=== PATIENT | female | born 1940 | race Caucasian/White ===

== ENCOUNTER 2023-03-15 20:18 | Emergency (ER) | payer MEDICARE, MEDICAID ==
[~2023-03-15] VITALS: Ht 172.7 cm; Wt 66.4 kg
[2023-03-15 20:36] VITALS: RESP 19; TEMP 97.7
[2023-03-15] MEDS ORDERED: LIDOcaine 1% W/epiNEPHrine 1:100,000 20ml vial SQ ONE (21:10)
[2023-03-15] MEDS ORDERED: LIDOCAINE 1%/EPI 1:100,000 inj. 10 ML multi-dose vial SQ ONE (21:15)
[2023-03-15 22:31] VITALS: BP 102/47; PULSE 81; O2SAT 96
== END 2023-03-15 22:33 | disposition home or self-care (01) ==
LOC: ER 20:19
DX: S01.81XA Laceration without foreign body of other part of head, initial encounter (principal); W18.39XA Other fall on same level, initial encounter; Y93.89 Activity, other specified; Y92.89 Other specified places as the place of occurrence of the external cause; Y99.8 Other external cause status
CPT/HCPCS: 12001; 12011; 70450; 72125; 99284; A6449

== ENCOUNTER 2023-07-18 08:17 | Inpatient (IN) | payer MEDICARE, MEDICAID ==
[2023-07-12 11:11] LABS: BILIRUBIN,URINE NEGATIVE (Neg); CLARITY,URINE CLOUDY (Clear); COLOR,URINE YELLOW (Yellow); GLUCOSE, URINE NEGATIVE (Neg); KETONES,URINE NEGATIVE (Neg); LEUKOCYTE ESTERASE ,URINE LARGE (Neg); NITRITES, URINE POSITIVE (Neg); OCCULT BLOOD,URINE SMALL (Neg); PH,URINE 6.5 (4.8-8.0); PROTEIN,URINE NEGATIVE (Neg); UROBILINOGEN,URINE 0.2 E.U/dL (0.2-1.0)
[2023-07-12 11:12] LABS: PRE OP INR 1.4 INR; PRE OP PROTIME 14.5 SECONDS (9.0-12.0)
[2023-07-12 11:14] LABS: ALBUMIN 3.4 G/DL (3.4-5.0); ALBUMIN/GLOBULIN RATIO 0.9 (1.1-1.5); ALKALINE PHOSPHATASE 108 IU/L (46-116); BASOPHILS % (AUTO) 0.6 % (0-1); BLOOD UREA NITROGEN 20 MG/DL (7-18); BUN/CREATININE RATIO 22.7 (10.0-20.0); CALCIUM 9.1 MG/DL (8.5-10.1); CHLORIDE 107 MMOL/L (99-107); CREATININE 0.88 MG/DL (0.40-0.90); EOSINOPHILS # (AUTO) 0.1 X10'3 (0-0.9); EOSINOPHILS % (AUTO) 1.9 % (0-6); LYMPHOCYTES # (AUTO) 1.1 X10'3 (1.1-4.8); LYMPHOCYTES % (AUTO) 18.3 % (21-51); MEAN CORPUSCULAR HEMOGLOBIN 30.6 PG (27.0-31.0); MEAN CORPUSCULAR VOLUME 92.8 FL (78-98); MEAN PLATELET VOLUME 8.8 FL (7.4-10.4); MONOCYTES # (AUTO) 0.6 X10'3 (0-0.9); MONOCYTES % (AUTO) 9.6 % (2-12); NEUTROPHILS # (AUTO) 4.2 X10'3 (1.8-7.7); NEUTROPHILS % (AUTO) 69.6 % (42-75); PRE OP ALT 22 U/L (30-65); PRE OP ANION GAP 7 (8-16); PRE OP AST 21 U/L (10-37); PRE OP BILIRUB, TOTAL 0.5 MG/DL (0.0-1.0); PRE OP GLUCOSE 87 MG/DL (70-104); PRE OP HEMATOCRIT 42.4 % (35.0-45.0); PRE OP PLATELET COUNT 174 X10'3 (140-440); PRE OP POTASSIUM 4.1 MMOL/L (3.4-5.1); PRE OP SODIUM 143 MMOL/L (135-145); PRE OP WHITE BLOOD COUNT 6.1 10'3 (4.8-10.8); RED BLOOD COUNT 4.57 X10'6 (4.20-5.60); RED CELL DISTRIBUTION WIDTH 13.8 % (11.5-14.5); TOTAL PROTEIN 7.2 G/DL (6.4-8.2); eGFR 61 ML/MIN
[2023-07-12 11:19] LABS: UA COLLECTION TYPE VOIDED
[2023-07-12 11:21] LABS: BACTERIA,URINE 3+ /HPF (Neg); MUCUS STRANDS NONE SEEN /LPF (Neg); RBC,URINE 0-2 /HPF (0-2); SQUAMOUS EPITHELIAL CELL,UR NONE SEEN /LPF (FEW); WBC,URINE 50-100 /HPF (0-4)
[2023-07-12 11:27] LABS: HEMOGLOBIN A1C 6.2 % (4.5-6.2)
[2023-07-18] VITALS (22 sets, daily range): BP systolic 105–143; BP diastolic 42–90; PULSE 59–85; RESP 7–20; TEMP 97.2–98.2; O2SAT 91–100
[~2023-07-18] VITALS: Ht 172.7 cm; Wt 72.9 kg
[2023-07-18] MEDS: cefazolin 2gm/D5W 100mL 100 ML IV ONE (05:30)
[~2023-07-18 08:17] MED LIST: AMIT25TA9 PO; ATOR10TA70 PO; DABI150C PO; DOCUMENT DATE & TIME OF BETA-BLOCKER PO ONE; FAMO-129 PO; FERR-39 PO; LOP12.5T PO; PREG150C47 PO; ondansetron/PF 4mg/2ml inj IV PRN
[2023-07-18] MEDS: ringers solution, lacted 1,000 ML IV SCH (08:50)
[2023-07-18] MEDS: vancomycin 1,500 MG in NS 300ml IV soln IV ONE (08:50)
[2023-07-18] MEDS: famotidine 20mg tablet PO ONE (08:50)
[2023-07-18] MEDS ORDERED: LIDOcaine 1% (10mg/ml) 2ml vial ONE (09:47)
[2023-07-18] MEDS ORDERED: sevoflurane 250ml liquid IH ONE (10:02)
[2023-07-18] MEDS ORDERED: LIDOcaine 1% 30ml preserv. free vial ONE (10:04)
[2023-07-18] MEDS ORDERED: iohexol 350MG/ML 100ml bottle IV ONE ×2 (10:05→10:51)
[2023-07-18] MEDS ORDERED: fentaNYL/PF 50MCG/1 ML 2ML syringe ONE (10:10)
[2023-07-18] MEDS: protamine sulfate 10mg/ml inj. ONE (10:21)
[2023-07-18] MEDS ORDERED: midazolam 1 mg/ML 2ml injection ONE (10:28)
[2023-07-18] MEDS ORDERED: LIDOcaine 2% (20mg/ml) 5ml vial ONE (10:28)
[2023-07-18] MEDS ORDERED: heparin 1,000unit/ml 10ml vial 10 ML ONE (10:28)
[2023-07-18] MEDS ORDERED: propofol inj 20 ML IV ONE (10:28)
[2023-07-18] MEDS ORDERED: rocuronium 10mg/ml inj IV ONE (10:28)
[2023-07-18] MEDS ORDERED: ondansetron/PF 4mg/2ml inj ONE (10:29)
[2023-07-18] MEDS ORDERED: dexamethasone sod phosphate 4mg/ml inj. ONE (10:29)
[2023-07-18 10:30] LABS: INR 1.5 INR; PROTHROMBIN TIME 15.2 SECONDS (9.0-12.0)
[2023-07-18 10:39] LABS: PRE OP PARTIAL THROMB. TIME 63 SECONDS (22-32)
[2023-07-18] MEDS ORDERED: phenylephrine 10mg/ml inj. -priapism dosing ONE (10:41)
[2023-07-18] MEDS ORDERED: ePHEDrine 50MG/ML INJ. ONE (10:41)
[2023-07-18] MEDS ORDERED: neostigmine methylsulfate 1 MG/ML 10ml vial ONE (11:28)
[2023-07-18] MEDS ORDERED: glycopyrrolate 0.2mg/ml inj ONE (11:28)
[2023-07-18] MEDS ORDERED: potassium Cl 40MEQ/1/2NS 520ml 520 ML IV PRN (11:35)
[2023-07-18] MEDS ORDERED: potassium Cl 20 mEq SR tablet PO PRN (11:35)
[2023-07-18] MEDS ORDERED: potassium CL 10mEq/100ml bag 100 ML IV PRN (11:35)
[2023-07-18] MEDS ORDERED: potassium Cl 20mEq/100mL bag 100 ML IV PRN (11:35)
[2023-07-18] MEDS ORDERED: diphenhydrAMINE 25mg capsule PO PRN (11:35)
[2023-07-18] MEDS ORDERED: potassium Cl 40MEQ/270ML bag 250 ML IV PRN (11:35)
[2023-07-18] MEDS ORDERED: proCHLORperazine 10 MG/2 ml inj IV PRN (11:35)
[2023-07-18] MEDS ORDERED: hydrALAZINE 20mg/ml inj. IV PRN (11:35)
[2023-07-18] MEDS ORDERED: ALPRAZolam 0.25mg tablet PO PRN (11:35)
[2023-07-18] MEDS ORDERED: magnesium 2GM in 50ml NS 50 ML IV PRN (11:35)
[2023-07-18] MEDS ORDERED: ondansetron/PF 4mg/2ml inj IV PRN (11:35)
[2023-07-18] MEDS ORDERED: docusate sod 100mg capsule PO PRN (11:35)
[2023-07-18] MEDS ORDERED: pantoprazole 40mg Tablet.DR PO PRN (11:35)
[2023-07-18] MEDS ORDERED: magnesium 4gm in 100ml NS 100 ML IV PRN (11:35)
[2023-07-18] MEDS ORDERED: labetalol 20mg/4ml (5mg/ml) syringe IV PRN (11:35)
[2023-07-18] MEDS: dabigatran 150mg capsule PO SCH (20:00)
[2023-07-18] MEDS: sod chloride 0.9% 10ml flush syringe IV SCH (20:00)
[2023-07-18] MEDS: normal saline 1000ml 1,000 ML IV SCH (20:00)
[2023-07-18] MEDS: metoprolol tartrate 12.5mg (1/2 tablet) PO SCH (21:06)
[2023-07-18] MEDS: amitriptyline 25mg tablet PO SCH (21:07)
[2023-07-18] MEDS: famotidine 20mg tablet PO SCH (21:07)
[2023-07-18] MEDS: pregabalin 75mg capsule PO SCH (21:07)
[2023-07-18] MEDS: ferrous sulfate 325mg tablet PO SCH (21:07)
[2023-07-19] MEDS: acetaminophen 325mg tablet PO PRN (00:19)
[2023-07-19 02:00] VITALS: BP 100/59; PULSE 77; RESP 14; TEMP 97.2; O2SAT 93
[2023-07-19 06:00] VITALS: BP 106/52; PULSE 66; RESP 19; TEMP 98.1; O2SAT 92
[2023-07-19 06:30] VITALS: O2SAT 69
[2023-07-19 07:03] LABS: BASOPHILS % (AUTO) 0.1 % (0-1); EOSINOPHILS % (AUTO) 0 % (0-6); HEMATOCRIT 38.5 % (35.0-45.0); HEMOGLOBIN 12.9 g/dl (12.0-16.0); LYMPHOCYTES # (AUTO) 0.8 X10'3 (1.1-4.8); LYMPHOCYTES % (AUTO) 9.1 % (21-51); MEAN CORPUSCULAR HEMOGLOBIN 30.9 PG (27.0-31.0); MEAN CORPUSCULAR HGB CONC 33.4 g/dL (33.0-36.5); MEAN CORPUSCULAR VOLUME 92.4 FL (78-98); MONOCYTES # (AUTO) 0.4 X10'3 (0-0.9); MONOCYTES % (AUTO) 5.2 % (2-12); NEUTROPHILS # (AUTO) 7.4 X10'3 (1.8-7.7); NEUTROPHILS % (AUTO) 85.6 % (42-75); PLATELET COUNT 172 X10'3 (140-440); RED BLOOD COUNT 4.16 X10'6 (4.20-5.60); RED CELL DISTRIBUTION WIDTH 13.9 % (11.5-14.5); WHITE BLOOD COUNT 8.6 X10'3 (4.5-11.0)
[2023-07-19 07:15] LABS: INR 1.1 INR; PROTHROMBIN TIME 11.4 SECONDS (9.0-12.0)
[2023-07-19 07:27] LABS: ALANINE AMINOTRANSFERASE 22 U/L (12-78); ALBUMIN 2.9 G/DL (3.4-5.0); ALBUMIN/GLOBULIN RATIO 0.8 (1.1-1.5); ALKALINE PHOSPHATASE 88 IU/L (46-116); ANION GAP 7 (8-16); ASPARTATE AMINO TRANSFERASE 22 U/L (10-37); BILIRUBIN,TOTAL 0.5 MG/DL (0.1-1.0); BLOOD UREA NITROGEN 18 MG/DL (7-18); BUN/CREATININE RATIO 19.4 (10.0-20.0); CALCIUM 8.8 MG/DL (8.5-10.1); CHLORIDE 108 MMOL/L (99-107); CREATININE 0.93 MG/DL (0.40-0.90); GLUCOSE 137 MG/DL (70-104); MAGNESIUM 2.2 MG/DL (1.5-2.4); POTASSIUM 4.2 MMOL/L (3.5-5.1); PRO BRAIN NATRIURETIC PEPTIDE 671 PG/ML (0-450); SODIUM 142 MMOL/L (135-145); TOTAL PROTEIN 6.4 G/DL (6.4-8.2); eCRCL 46 ML/MIN; eGFR 58 ML/MIN
[2023-07-19] MEDS: atorvastatin 10mg tablet PO SCH (07:58)
[2023-07-19 08:00] VITALS: RESP 19; O2SAT 92
[2023-07-19] MEDS: metoprolol tartrate 25mg tablet PO SCH (08:00)
[2023-07-19 11:00] VITALS: BP 100/52; PULSE 70; RESP 13; TEMP 97.7; O2SAT 92
[2023-07-19 15:00] VITALS: BP 95/52; PULSE 71; RESP 14; TEMP 97.6; O2SAT 96
== END 2023-07-19 16:52 | disposition home or self-care (01) | DRG 274 ==
LOC: PAS IN 08:17 → PCU 3S 17:39
PROVIDERS: ADMIT Student in an Organized Health Care Education/Training Program; ATTEND Student in an Organized Health Care Education/Training Program
PROC: B24BZZ4 Ultrasonography of Heart with Aorta, Transesophageal (ICD-10-PCS; 2023-07-18)
PROC: 03HY32Z Insertion of Monitoring Device into Upper Artery, Percutaneous Approach (ICD-10-PCS; 2023-07-18)
PROC: B246ZZ4 Ultrasonography of Right and Left Heart, Transesophageal (ICD-10-PCS; 2023-07-18)
PROC: 02L73DK Occlusion of Left Atrial Appendage with Intraluminal Device, Percutaneous Approach (ICD-10-PCS; principal; 2023-07-18 10:06)
DX: I48.0 Paroxysmal atrial fibrillation (principal); Z00.6 Encounter for examination for normal comparison and control in clinical research program; I10 Essential (primary) hypertension; E78.5 Hyperlipidemia, unspecified; I73.9 Peripheral vascular disease, unspecified; I49.5 Sick sinus syndrome; Z95.0 Presence of cardiac pacemaker; Z88.2 Allergy status to sulfonamides; Z88.1 Allergy status to other antibiotic agents
CPT/HCPCS: 33340; 36415; 71045; 71046; 76937; 80053; 81001; 82948; 83036; 83735; 83880; 85025; 85347; 85610; 85730; 86885; 86900; 86901; 86920; 87077; 87081; 87088; 87186; 93005; 93308; 93312; 93325; A4615; A4618; A6258; A6449; C1760; C1889; C1893; C1894; G0378; J0690; J1100; J1644; J2250; J2370; J2405; J2704; J2710; J2720; J3010; J3370; J3490; J7040; J7120; Q9967

== ENCOUNTER 2023-08-27 11:54 | Day surgery (SDC) | payer MEDICARE, MEDICAID ==
[~2023-08-27] VITALS: Ht 172.7 cm; Wt 73.9 kg
[2023-08-27] VITALS (14 sets, daily range): BP systolic 101–127; BP diastolic 53–80; PULSE 60–64; RESP 16; TEMP 97.7; O2SAT 91–100
[~2023-08-27 11:54] MED LIST changes: -DOCUMENT DATE & TIME OF BETA-BLOCKER PO ONE; -ondansetron/PF 4mg/2ml inj IV PRN
[2023-08-27 12:48] LABS: BASOPHILS % (AUTO) 0.5 % (0-1); EOSINOPHILS # (AUTO) 0.1 X10'3 (0-0.9); EOSINOPHILS % (AUTO) 3.1 % (0-6); HEMATOCRIT 40.9 % (35.0-45.0); HEMOGLOBIN 13.5 g/dl (12.0-16.0); LYMPHOCYTES # (AUTO) 1.2 X10'3 (1.1-4.8); LYMPHOCYTES % (AUTO) 32.1 % (21-51); MEAN CORPUSCULAR HEMOGLOBIN 30.3 PG (27.0-31.0); MEAN CORPUSCULAR HGB CONC 33.1 g/dL (33.0-36.5); MEAN CORPUSCULAR VOLUME 91.5 FL (78-98); MEAN PLATELET VOLUME 8.7 FL (7.4-10.4); MONOCYTES # (AUTO) 0.4 X10'3 (0-0.9); MONOCYTES % (AUTO) 9.8 % (2-12); NEUTROPHILS # (AUTO) 2.1 X10'3 (1.8-7.7); NEUTROPHILS % (AUTO) 54.5 % (42-75); PLATELET COUNT 197 X10'3 (140-440); RED BLOOD COUNT 4.47 X10'6 (4.20-5.60); RED CELL DISTRIBUTION WIDTH 15.7 % (11.5-14.5); WHITE BLOOD COUNT 3.8 X10'3 (4.5-11.0)
[2023-08-27 12:59] LABS: ALBUMIN 3.8 G/DL (3.4-5.0); ANION GAP 5 (8-16); BLOOD UREA NITROGEN 20 MG/DL (7-18); BUN/CREATININE RATIO 21.3 (10.0-20.0); CHLORIDE 104 MMOL/L (99-107); CREATININE 0.94 MG/DL (0.40-0.90); GLUCOSE 87 MG/DL (70-104); POTASSIUM 3.1 MMOL/L (3.5-5.1); SODIUM 140 MMOL/L (135-145); TOTAL CARBON DIOXIDE 31.3 MMOL/L (24-32); eCRCL 46 ML/MIN; eGFR 57 ML/MIN
[2023-08-27 13:03] LABS: APTT 47 SECONDS (22-32); INR 1.2 INR; PROTHROMBIN TIME 12.4 SECONDS (9.0-12.0)
[2023-08-27] MEDS ORDERED: [UNRECOGNIZED DRUG - CODE] PO (13:16)
[2023-08-27] MEDS ORDERED: FERR-106 PO (13:16)
[2023-08-27] MEDS ORDERED: HYDR25TA4 PO (13:16)
[2023-08-27] MEDS: fentaNYL/PF 50MCG/1 ML 2ML syringe IV ONE (15:09)
[2023-08-27] MEDS: MIDAZolam 1mg/ml 10ml vial IV ONE (15:09)
== END 2023-08-27 17:15 | disposition home or self-care (01) ==
LOC: SSTAY O 11:54 → EDSTATUS 14:30 → SSTAY O 17:15
PROVIDERS: ATTEND Internal Medicine Interventional Cardiology
DX: I48.0 Paroxysmal atrial fibrillation (principal); I10 Essential (primary) hypertension; E78.00 Pure hypercholesterolemia, unspecified; E89.0 Postprocedural hypothyroidism; G62.9 Polyneuropathy, unspecified; M19.90 Unspecified osteoarthritis, unspecified site; Z79.01 Long term (current) use of anticoagulants; Z79.82 Long term (current) use of aspirin; Z79.899 Other long term (current) drug therapy; Z88.2 Allergy status to sulfonamides; Z88.8 Allergy status to other drugs, medicaments and biological substances; Z90.89 Acquired absence of other organs; Z98.890 Other specified postprocedural states; Z82.49 Family history of ischemic heart disease and other diseases of the circulatory system; Z80.9 Family history of malignant neoplasm, unspecified
CPT/HCPCS: 36415; 80048; 85025; 85610; 85730; 93312; 93325; J2250; J3010; J7030; 92960; A4620